=== PATIENT | male | born 1955 | race Two or more races ===

== ENCOUNTER 2020-05-20 19:13 | Emergency (ER) | payer OTHER ==
[~2020-05-20] VITALS: Ht 172.7 cm; Wt 95.3 kg
== END 2020-05-20 22:11 | disposition home or self-care (01) ==
LOC: ER 19:13
DX: S62.101A Fracture of unspecified carpal bone, right wrist, initial encounter for closed fracture (principal); S63.591A Other specified sprain of right wrist, initial encounter; M12.531 Traumatic arthropathy, right wrist; V97.0XXA Occupant of aircraft injured in other specified air transport accidents, initial encounter; Y93.89 Activity, other specified; Y92.520 Airport as the place of occurrence of the external cause; Y99.8 Other external cause status

== ENCOUNTER 2020-12-26 09:10 | Emergency (ER) | payer OTHER ==
[~2020-12-26] VITALS: Ht 172.7 cm; Wt 93.0 kg
[2020-12-26] MEDS ORDERED: NORFLEX100MG PO (11:16)
[2020-12-26] MEDS ORDERED: KETO10TA2 PO (11:16)
== END 2020-12-26 11:30 | disposition home or self-care (01) ==
LOC: ER 09:10
DX: M54.5 Low back pain (principal)